=== PATIENT | male | born 1960 | race Caucasian/White ===

== ENCOUNTER 2024-07-25 14:45 | Inpatient (IN) | payer OTHER ==
[2024-07-25 15:22] VITALS: BMI 25.7
[2024-07-25] MEDS ORDERED: chlordiazePOXIDE HCL 25 MG CAPSULE PO PRN (15:49)
[2024-07-25] MEDS ORDERED: BISMUTH SUBSALICYLATE 524 MG/30 ML PO PRN (15:50)
[2024-07-25] MEDS ORDERED: hydrOXYzine PAMOATE 25 MG CAPSULE (FP) PO PRN (15:50)
[2024-07-25] MEDS ORDERED: MAG HYDROX/AL HYDROX/SIMETH 30 ML UNIT-DOSE CUP PO PRN (15:50)
[2024-07-25] MEDS ORDERED: NALOXONE (NARCAN) HCL 4 MG/0.1 ML SPRAY NS PRN (15:50)
[2024-07-25] MEDS ORDERED: POLYETHYLENE GLYCOL (HEALTHYLAX) 3350 17 GM PACKET PO PRN (15:50)
[2024-07-25] MEDS ORDERED: guaiFENesin 600 MG TABLET.ER (FP) PO PRN (15:50)
[2024-07-25] MEDS ORDERED: ONDANSETRON *ODT* 4 MG TABLET SL PRN (15:50)
[2024-07-25] MEDS ORDERED: DICYCLOMINE HCL 10 MG CAPSULE PO PRN (15:50)
[2024-07-25] MEDS ORDERED: METHOCARBAMOL 500 MG TABLET PO PRN (15:50)
[2024-07-25] MEDS ORDERED: BENZONATATE 200 MG CAPSULE PO PRN (15:50)
[2024-07-25] MEDS ORDERED: IBUPROFEN 400 MG TABLET (FP) PO PRN (15:50)
[2024-07-25] MEDS ORDERED: IBUPROFEN 600 MG TABLET (FP) PO PRN (15:50)
[2024-07-25] MEDS ORDERED: MAGNESIUM HYDROX 2400MG/30ML ORAL SUSPENSION 30 ML CUP PO PRN (15:50)
[2024-07-25] MEDS ORDERED: BENZOCAINE/MENTHOL (CHLORASEPTIC ) LOZENGE MM PRN (15:50)
[2024-07-25] MEDS ORDERED: chlordiazePOXIDE HCL 25 MG CAPSULE ONE (17:23)
[2024-07-25] MEDS: chlordiazePOXIDE HCL 25 MG CAPSULE PO SCH (17:54)
[2024-07-25] MEDS: LOPERAMIDE HCL 2 MG CAPSULE PO PRN (17:55)
[2024-07-25] MEDS ORDERED: LOPERAMIDE HCL 2 MG CAPSULE ONE (17:56)
[2024-07-25] MEDS: ACETAMINOPHEN 325 MG TABLET (FP) PO PRN (17:58)
[2024-07-25] MEDS ORDERED: ACETAMINOPHEN 325 MG TABLET (FP) ONE (18:00)
[2024-07-25] MEDS ORDERED: ASPIRIN COATED 81 MG TABLET.EC PO SCH (19:15)
[2024-07-25] MEDS: levETIRAcetam 500 MG TABLET (FP) PO SCH (22:14)
[2024-07-25] MEDS: MELATONIN 5 MG TABLETS PO SCH (22:14)
[2024-07-25] MEDS: MIRTAZAPINE 15 MG TABLET (FP) PO ONE (22:16)
[2024-07-25] MEDS: QUEtiapine FUMARATE 100 MG TABLET (FP) PO ONE (22:16)
[2024-07-25] MEDS: THIAMINE 100 MG TABLET PO SCH (22:16)
[2024-07-25] MEDS: OXYMETAZOLINE 0.05% NASAL SOLUTION 15 ML BOTTLE NS PRN (23:16)
[2024-07-26 08:46] VITALS: RESP 18
[2024-07-26] MEDS: PRENATAL VITAMINS W/ FOLIC ACID TABLET (FP) PO SCH (10:12)
[2024-07-26 10:38] LABS: HEMATOCRIT 40.8 % (40.1-51.0); HEMOGLOBIN 13.4 g/dL (13.7-17.5); MCHC 32.8 g/dl (32.3-36.5); MEAN CELL VOLUME 84.6 fl (79.0-92.2); MEAN PLT VOLUME 9.2 fl (9.4-12.4); PLATELET COUNT 297 x10^3/uL (163-337); RDW 13.5 % (12.2-16.4)
[2024-07-26 10:40] LABS: POTASSIUM 4.2 mmol/L (3.5-5.1)
[2024-07-26 10:49] LABS: ALBUMIN 3.3 g/dl (3.4-5.0); BLOOD UREA NITROGEN 13.2 mg/dL (7-18); CALCIUM 9.2 mg/dL (8.5-10.1); CREATININE 0.7 mg/dL (0.55-1.3)
[2024-07-26 10:51] LABS: TOT PROT 6.2 g/dl (6.4-8.2)
[2024-07-26 10:58] LABS: BILIRUBIN,TOTAL 0.4 mg/dL (0.2-1)
[2024-07-26] MEDS: PNEUMOC 20-VAL CONJ-DIP CRM/PF 0.5 ML SYRINGE IM ONE (12:32)
[2024-07-26 17:34] VITALS: BP 108/62; PULSE 62; TEMP 97.6
[2024-07-26] MEDS ORDERED: MIRTAZAPINE 30 MG TABLET PO SCH (22:00)
[2024-07-26] MEDS ORDERED: QUEtiapine FUMARATE 50 MG TABLET PO SCH (22:00)
[2024-07-27] MEDS ORDERED: chlordiazePOXIDE HCL 25 MG CAPSULE PO SCH (05:00)
[2024-07-28] MEDS ORDERED: chlordiazePOXIDE HCL 10 MG CAPSULE PO PRN
[2024-07-28] MEDS ORDERED: chlordiazePOXIDE HCL 10 MG CAPSULE PO SCH (05:00)
[2024-07-29] MEDS ORDERED: chlordiazePOXIDE HCL 10 MG CAPSULE PO SCH (05:00)
[2024-07-30] MEDS ORDERED: chlordiazePOXIDE HCL 10 MG CAPSULE PO ONE (05:00)
== END 2024-07-26 20:04 | disposition left against medical advice (07) | DRG 894 ==
LOC: YASAS 14:45 → Y3N 17:46
PROVIDERS: ADMIT Allergy & Immunology; ATTEND Allergy & Immunology
PROC: HZ2ZZZZ Detoxification Services for Substance Abuse Treatment (ICD-10-PCS; principal; 2024-07-25)
DX: F13.230 Sedative, hypnotic or anxiolytic dependence with withdrawal, uncomplicated (principal); F41.9 Anxiety disorder, unspecified; F32.9 Major depressive disorder, single episode, unspecified; G47.00 Insomnia, unspecified; I25.10 Atherosclerotic heart disease of native coronary artery without angina pectoris; Z95.5 Presence of coronary angioplasty implant and graft
CPT/HCPCS: 36415; 80053; 80305; 80307; 85027; 86780; 90677; 93005; 93010